=== PATIENT | male | born 1990 | race Caucasian/White ===

== ENCOUNTER 2020-02-14 18:41 | Emergency (ER) | payer MEDICAID ==
[2020-02-14 19:02] VITALS: BP 126/85
--- NOTE | 2020-02-14 19:19 | ED Physician Documentation ---
PD HPI HEENT - Stated complaint Stated Complaint: TOOTH PX - Chief complaint Chief Complaint: Heent - History obtained from History obtained from: Patient (LONGSTANDING DENTAL PAIN, WORSE TODAY FROM L MANDIBLE. NO FEVER, OR SWELLING.) Review of Systems Constitutional: denies: Fever Nose: denies: Rhinorrhea / runny nose Throat: denies: Sore throat PD PAST MEDICAL HISTORY - Present Medications Home Medications: Ambulatory Orders Medication Instructions Recorded Confirmed Amoxicillin 500 mg PO TID #30 capsule 02/14/20 Hydrocodone/Acetaminophen 1 - 2 each PO Q6H PRN #14 tablet 02/14/20 [Hydrocodon-Acetaminophen 5-325] Ibuprofen [Motrin] 800 mg PO Q8H PRN #30 tablet 02/14/20 PD ED PE NORMAL - Vitals Vital signs reviewed: Yes - General General: Alert and oriented X 3, No acute distress - HEENT HEENT: Other (GEN POOR DENTITION, CAVITY DOWN TO GUMLINE L CONSUELO MOLAR, NO TRISMUS, SWELLING OR SUBLINGUAL EDEMA.) - Neuro Neuro: Alert and oriented X 3, Normal speech Results - Vitals Vitals: Vital Signs - 24 hr 02/14/20 18:57 Temperature 36.6 C Heart Rate 72 Respiratory 18 Rate Blood Pressure 126/85 H O2 Saturation 98 Oxygen O2 Source Room air Departure - Departure Disposition: 01 Home, Self Care Clinical Impression: Pain due to dental caries Condition: Good Record reviewed to determine appropriate education?: Yes Instructions: ED Tooth Pain Follow-Up: SCOTT ARMENTA [Physician No Access] - Prescriptions: Amoxicillin 500 mg PO TID #30 capsule Hydrocodone/Acetaminophen [Hydrocodon-Acetaminophen 5-325] 1 - 2 each PO Q6H PRN #14 tablet PRN Reason: pain Ibuprofen [Motrin] 800 mg PO Q8H PRN #30 tablet PRN Reason: PAIN &/OR FEVER Comments: It is very important that you follow-up with a dentist. When it comes to dental problems like yours, the emergency department can only offer a short-term solution to your long-term problem. A couple of low cost options for general dental care include: [facility] in [place], calls [phone] for an appointment Or [facility] in [place], call [phone] for an appointment. THAT SAID, THE TOOTH INQUESTION IS PRETTY BAD, CALL THE ORAL SURGEON LISTED ON THIS PAGE
== END 2020-02-14 19:25 | disposition home or self-care (01) ==
LOC: ED 18:41
DX: K02.9 Dental caries, unspecified (principal)
CPT/HCPCS: 99283

== ENCOUNTER 2020-05-16 11:29 | Emergency (ER) | payer MEDICAID ==
[2020-05-16 11:41] VITALS: BP 128/78
--- NOTE | 2020-05-16 11:54 | ED Physician Documentation ---
PD HPI HEENT - Stated complaint Stated Complaint: MOUTH PX - Chief complaint Chief Complaint: General - History obtained from History obtained from: Patient PD PAST MEDICAL HISTORY - Past Surgical History Past Surgical History: Yes HEENT: Tonsil/Adenoidectomy - Present Medications Home Medications: Ambulatory Orders Medication Instructions Recorded Confirmed Amoxicillin 500 mg PO TID #30 capsule 02/14/20 Hydrocodone/Acetaminophen 1 - 2 each PO Q6H PRN #14 tablet 02/14/20 [Hydrocodon-Acetaminophen 5-325] Ibuprofen [Motrin] 800 mg PO Q8H PRN #30 tablet 02/14/20 - Allergies Allergies/Adverse Reactions: Allergies Allergy/AdvReac Type Severity Reaction Status Date / Time Penicillins Allergy Unknown Verified 05/16/20 11:40 - Social History Does the pt smoke?: Yes Smoking Status: Current every day smoker Does the pt drink ETOH?: Yes Does the pt have substance abuse?: No - Immunizations Immunizations are current?: Yes - POLST Patient has POLST: No Results - Vitals Vitals: Vital Signs - 24 hr 05/16/20 11:34 Temperature 36.3 C L Heart Rate 60 Respiratory 16 Rate Blood Pressure 128/78 O2 Saturation 99 Oxygen O2 Source Room air
--- NOTE | 2020-05-16 12:05 | ED Physician Documentation ---
History of Present Illness - Stated complaint Stated Complaint: MOUTH PX - Chief complaint Chief Complaint: General - Additonal information Additional information: 30-year-old male presents to the emergency department with ongoing left lower mandible tooth pain. This is been a problem for 6 months or greater. He was seen approximately 3 months ago for similar. Prescribed antibiotics. Advised to follow-up with dentistry but patient states he cannot afford to take time off of work. This exacerbation of pain is been ongoing for about 2 weeks. He is taken ibuprofen with little relief. He has no trismus or fevers. Normal phonation. Normal swallow. Review of Systems Constitutional: reports: Reviewed and negative Eyes: reports: Reviewed and negative Ears: reports: Reviewed and negative Nose: reports: Reviewed and negative Throat: reports: Dental pain / toothache. denies: Oral lesions / sores, Sore throat, Swollen tonsils Cardiac: reports: Reviewed and negative Respiratory: reports: Reviewed and negative GI: reports: Reviewed and negative : reports: Reviewed and negative Skin: reports: Reviewed and negative Musculoskeletal: reports: Reviewed and negative Neurologic: reports: Reviewed and negative Psychiatric: reports: Reviewed and negative Endocrine: reports: Reviewed and negative PD PAST MEDICAL HISTORY - Past Surgical History Past Surgical History: Yes HEENT: Tonsil/Adenoidectomy - Present Medications Home Medications: Ambulatory Orders Medication Instructions Recorded Confirmed Amoxicillin 500 mg PO TID #30 capsule 02/14/20 Hydrocodone/Acetaminophen 1 - 2 each PO Q6H PRN #14 tablet 02/14/20 [Hydrocodon-Acetaminophen 5-325] Ibuprofen [Motrin] 800 mg PO Q8H PRN #30 tablet 02/14/20 Amox/Clav 875/125 [Augmentin] 1 each PO Q12H #20 tablet 05/16/20 - Allergies Allergies/Adverse Reactions: Allergies Allergy/AdvReac Type Severity Reaction Status Date / Time Penicillins Allergy Unknown Verified 05/16/20 11:40 - Social History Does the pt smoke?: Yes Smoking Status: Current every day smoker Does the pt drink ETOH?: Yes Does the pt have substance abuse?: No - Immunizations Immunizations are current?: Yes - POLST Patient has POLST: No PD ED PE EXPANDED - General General: Alert, Well developed/nourished - HEENT HEENT: Atraumatic, Head injury, Dental decay, Other (Tooth #18 decayed to the gumline. Tenderness to palpation. No gumline swelling or fluctuance. No purulent drainage. No trismus. Uvula is midline. No swelling on floor of the mouth) - Neck Neck: Supple w/out meningeal sx, No tenderness, Other (full ROM in all planes). No: Adenopathy Results - Vitals Vitals: Vital Signs - 24 hr 05/16/20 11:34 Temperature 36.3 C L Heart Rate 60 Respiratory 16 Rate Blood Pressure 128/78 O2 Saturation 99 Oxygen O2 Source Room air PD MEDICAL DECISION MAKING - ED course Complexity details: reviewed old records, d/w patient ED course: 30-year-old male presents emergency department with ongoing left lower mouth jaw pain at the site of a tooth that has been decayed for quite some time. Seen approximately 3 months ago for similar. Patient has been unable to follow-up with dentist as he does not want to miss work. no trismus, fever, or red flags. no s/s of ludwigs. Patient will be prescribed Augmentin. Recommend warm salt water rinses. Advised that this will be a reoccurring problem until he follows up with a dentist to have the tooth removed. Emergent return precautions disc ussed Departure - Departure Disposition: 01 Home, Self Care Clinical Impression: Pain, dental Condition: Stable Record reviewed to determine appropriate education?: Yes Prescriptions: Amox/Clav 875/125 [Augmentin] 1 each PO Q12H #20 tablet Comments: Haseeb it is important that you see a dentist to have the remaining tooth removed. Pain and infection will become a recurrent problem until this happens. [facility] in [place] does offer dental walk-in appointments if you arrive early in the morning around 8 AM. I do recommend that you call to schedule an appointment with a dentist as soon as possible. [facility] dental clinics in [place] may also be another option to be seen as soon as possible If you have fevers, facial swelling, cannot open your jaw fully then please return to the ER for a second evaluation
== END 2020-05-16 12:20 | disposition home or self-care (01) ==
LOC: ED 11:29
DX: K08.89 Other specified disorders of teeth and supporting structures (principal); F17.200 Nicotine dependence, unspecified, uncomplicated
CPT/HCPCS: 99282; 99283